=== PATIENT | male | born 1965 | race Caucasian/White ===

== ENCOUNTER → 2023-07-14 | Outpatient (CLI) | payer OTHER ==
[2023-07-14 13:17] LABS: IMMUNOGLOBULIN A 148.6 MG/DL (40-350)
[2023-07-14 13:18] LABS: FREE T4 1.05 NG/DL (0.89-1.76); THYROID STIMULATING HORMONE 1.084 uIU/ML (0.55-4.78)
== END ==
LOC: M LAB 11:53
PROVIDERS: ATTEND Internal Medicine Gastroenterology
DX: R19.4 Change in bowel habit (principal)

== ENCOUNTER → 2023-07-21 | Outpatient (CLI) | payer OTHER ==
[~2023-07-21] MED LIST: GLUCAGON INJ 1MG VIAL As Ordered ONE; ISOVUE-370 76% 100ML VIAL As Ordered ONE; NEULUMEX 0.1% SUSPENSION 450ML BOTTLE (FORMERLY VOLUMEN) As Ordered ONE
== END ==
LOC: M RAD 07:29
PROVIDERS: ATTEND Internal Medicine Gastroenterology
DX: K52.3 Indeterminate colitis (principal); R19.4 Change in bowel habit; K40.20 Bilateral inguinal hernia, without obstruction or gangrene, not specified as recurrent; N43.3 Hydrocele, unspecified
CPT/HCPCS: 74177; J1610; Q9967

== ENCOUNTER 2023-09-24 07:47 | Day surgery (SDC) | payer OTHER ==
[~2023-09-24] VITALS: Ht 182.9 cm; Wt 95.7 kg
[~2023-09-24 07:47] MED LIST changes: +ESCI5SOL3 PO; +FEXO-117 PO; -GLUCAGON INJ 1MG VIAL As Ordered ONE; +GLYCOPYRROLATE INJ 0.2 MG/ML 2 ML VIAL As Ordered ONE; -ISOVUE-370 76% 100ML VIAL As Ordered ONE; +LIDOCAINE 2% 100MG/5ML SDV (FOR ANES.) As Ordered ONE; +MONT10TA97 PO; -NEULUMEX 0.1% SUSPENSION 450ML BOTTLE (FORMERLY VOLUMEN) As Ordered ONE; +TOLT2TAB12 PO; +propofoL 200 MG/20 ML VIAL As Ordered ONE
[2023-09-24 09:40] VITALS: TEMP 97.4
[2023-09-24 09:55] VITALS: BP 111/65; O2SAT 96
== END 2023-09-24 09:57 | disposition home or self-care (01) ==
LOC: M OPP 07:47 → EDUNIT# 09:00 → M OPP 09:57
PROVIDERS: ATTEND Internal Medicine Gastroenterology
DX: K64.8 Other hemorrhoids (principal); K62.6 Ulcer of anus and rectum; K52.89 Other specified noninfective gastroenteritis and colitis; K62.89 Other specified diseases of anus and rectum; R19.4 Change in bowel habit; R10.13 Epigastric pain; Z87.891 Personal history of nicotine dependence; Z79.811 Long term (current) use of aromatase inhibitors; Z79.899 Other long term (current) drug therapy